=== PATIENT | female | born 1995 | race Caucasian/White ===

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

== ENCOUNTER 2017-01-26 21:42 | Emergency (ER) | payer OTHER ==
[2017-01-26 21:53] VITALS: BP 116/72; PULSE 78; TEMP 98.6; BMI 27.4
[2017-01-26] MEDS ORDERED: predniSONE 20 MG TABLET (UD) PO ONE (22:31)
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
[2017-01-26] MEDS ORDERED: predniSONE 20 MG TABLET (UD) ONE (22:40)
== END 2017-01-26 22:59 | disposition home or self-care (01) ==
LOC: FER 21:42
DX: G51.0 Bell's palsy (principal)
CPT/HCPCS: 99281-25